=== PATIENT | male | born 1990 | race Caucasian/White ===

== ENCOUNTER 2018-09-13 20:28 | Inpatient (IN) | payer OTHER ==
[~2018-09-13] VITALS: Ht 182.8 cm; Wt 78.5 kg
--- NOTE | ~2018-09-13 | EKG ---
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
--- NOTE | ~2018-09-13 | EKG ---
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
[2018-09-13 20:34] VITALS: BP 112/61
[2018-09-13 20:45] LABS: BASO % 0.6 % (0.0-1.0); EOS # 0.2 10*3/uL (0.0-0.4); EOS % 3.4 % (1.0-4.0); HEMATOCRIT 41.5 % (42.0-52.0); HEMOGLOBIN 13.2 g/dl (14.0-18.0); LYMPH # 1.5 10*3/uL (1.3-4.4); LYMPH % 23.6 % (27.0-41.0); MEAN CORPUSCULAR HGB 28.9 pg (27.0-31.0); MEAN CORPUSCULAR HGB CONC 31.8 g/dl (33.0-37.0); MEAN PLATELET VOLUME 9.4 fl (9.6-12.3); MONO # 0.3 10*3/uL (0.1-1.0); MONO % 5.1 % (3.0-9.0); NEUT # 4.4 10*3/uL (2.3-7.9); NEUT % 67.1 % (47.0-73.0); PLATELET COUNT AUTOMATED 200 10*3/uL (130-400); RED BLOOD COUNT 4.56 10*6/uL (4.50-5.90); RED CELL DISTRI WIDTH 12.9 % (0-14.5); WHITE BLOOD COUNT 6.5 10*3/uL (4.8-10.8)
[2018-09-13 20:59] LABS: BILIRUBIN NEGATIVE (NEGATIVE); BLOOD NEGATIVE (NEGATIVE); CLARITY CLEAR (CLEAR); COLOR YELLOW (YELLOW); GLUCOSE NEGATIVE (NEGATIVE); KETONE NEGATIVE (NEGATIVE); LEUKO ESTERASE NEGATIVE (NEGATIVE); NITRITE NEGATIVE (NEGATIVE)
[2018-09-13 21:02] LABS: ALBUMIN 3.8 gm/dl (3.1-4.5); ALKALINE PHOSPHATASE 99 U/L (45-117); BUN 11 mg/dl (7-24); CHLORIDE 105 mmol/L (98-107); CREATININE 0.97 mg/dL (0.70-1.30); POTASSIUM 4.5 mmol/L (3.5-5.1); SGOT/AST 50 IU/L (3-35); SGPT/ALT 79 U/L (12-78); SODIUM 141 mmol/L (136-145); TOTAL PROTEIN 7.2 gm/dL (6.4-8.2)
[2018-09-13 21:04] LABS: ACETAMINOPHEN (TYLENOL) < 2.0 ug/ml (10-30)
[2018-09-13 21:07] LABS: URINE AMPHETAMINES < 1000 (1000ng/ml); URINE BARBITURATES > 200 (200ng/ml); URINE BENZODIAZEPINES < 200 (200ng/ml); URINE CANNABINOIDS (THC) < 50 (50ng/ml); URINE COCAINE < 300 (300ng/ml); URINE METHADONE < 300 (300ng/ml); URINE OPIATES < 300 (300ng/ml)
[2018-09-13 21:08] LABS: ETHYL ALCOHOL < 3.0 mg/dl (<3)
[2018-09-13 21:08] LABS: URINE PHENCYCLIDINE < 25 (25ng/ml)
[2018-09-13 21:14] LABS: EPITHELIAL CELLS 0-2; RBC 0-2 rbc/hpf (0-2); WBC 0-2 wbc/hpf (0-5)
[2018-09-13 21:15] LABS: BACTERIA TRACE
[2018-09-13 22:00] VITALS: BP 128/66
--- NOTE | 2018-09-13 22:00 | NUR ---
27 year old MALE admitted to room # 416 for stabilization. 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 Compliant with admission procedure. Patient denies any anxiety, but is unable to sit still, taps toes to floor continuously, looks about room, unable to focus eyes on nurse during interview. See assessment forms for additional information about patient status.
[2018-09-13] MEDS ORDERED: CETIRIZINE HYDR10 MG PO (22:12)
[2018-09-13] MEDS ORDERED: HYDROXYZINE PAM50 MG PO (22:13)
[2018-09-13] MEDS ORDERED: HYDR100C11 PO (22:13)
[2018-09-13] MEDS ORDERED: GABAPENTIN600 MG PO (22:19)
[2018-09-13] MEDS ORDERED: PROPRANOLOL HCL60 MG PO (22:19)
[2018-09-13] MEDS ORDERED: AVPAK PRIMIDON250 M1 PO (22:19)
[2018-09-13] MEDS ORDERED: DIVALPROEX SOD500 MG PO (22:24)
--- NOTE | 2018-09-13 22:25 | NUR ---
MED REC UP TO DATE WITH PATIENT. WILL NEED TO CALL PHARMACY IN AM TO VERIFY MEDICATIONS.
--- NOTE | 2018-09-13 23:40 | NUR ---
Patient reports the following symptoms of withdrawal: body aches, leg pain, nausea and cravings. Patient given scheduled/PRN medication to control withdrawal symptoms. Close observation will be maintained.
[2018-09-14] VITALS: BP 112/58
--- NOTE | 2018-09-14 00:45 | NUR ---
Patient resting. Responding to scheduled medications with fewer complaints of pain and anxiety.
--- NOTE | 2018-09-14 02:26 | NUR ---
NOTIFIFED DR SIDDIQUI OF PATIETNS HR STAYING 42-45 AND DROPPING TO 37. STATED TO KEEP AN EYE ON IT RIGHT NOW.
--- NOTE | 2018-09-14 02:54 | NUR ---
PATIENT SLEEPING. NO S/S OF DISTRESS NOTED. RESPIRATIONS EASY/REG ON RA. CALL LIGHT IN REACH
[2018-09-14 04:00] VITALS: BP 98/50
--- NOTE | 2018-09-14 05:37 | NUR ---
SLEEPING, EASILY AROUSABLE FOR AM MEDICATIONS. MEDICATED WITH PRN VISTARIL FOR C/O ANXIETY AND PRN ROBAXIN FOR C/O MUSCLE ACHES/PAINS. NO FURTHER VOICED COMPLAINTS.
[2018-09-14 08:00] VITALS: BP 98/60
[2018-09-14 12:00] VITALS: BP 90/74
--- NOTE | 2018-09-14 14:05 | NUR ---
Discharge instructions reviewed with patient/family. Patient receptive and verbalizes understanding. Follow-up care arranged. Written instructions given to patient/family. Pt. ambulated off the floor with no signs or symptoms of withdrawal. Cab was arranged by Vimal Pepe and pt is waiting in main lobby. DENISE AHMADI
== END 2018-09-14 14:19 | DRG 897 ==
LOC: ED 20:28 → EDHOLD 21:31 → 4E 21:53
PROVIDERS: Nurse Practitioner Family; ADMIT Internal Medicine
DX: F11.10 Opioid abuse, uncomplicated (principal); F14.10 Cocaine abuse, uncomplicated; F13.10 Sedative, hypnotic or anxiolytic abuse, uncomplicated; F41.9 Anxiety disorder, unspecified; G62.9 Polyneuropathy, unspecified; R00.1 Bradycardia, unspecified; T50.995A Adverse effect of other drugs, medicaments and biological substances, initial encounter; J30.2 Other seasonal allergic rhinitis; Z72.0 Tobacco use; Z71.6 Tobacco abuse counseling; Z91.013 Allergy to seafood; Z88.1 Allergy status to other antibiotic agents; Z79.899 Other long term (current) drug therapy; Y92.89 Other specified places as the place of occurrence of the external cause